=== PATIENT | male | born 1955 | race Caucasian/White ===

== ENCOUNTER 2017-10-15 17:52 | Emergency (ER) | payer OTHER, MEDICAID ==
[2017-10-15 18:14] VITALS: BP 119/71; PULSE 74; RESP 18; TEMP 98.1; O2SAT 95
[2017-10-15] MEDS ORDERED: CEPHALEXIN 500 MG CAP PO ONE (18:26)
--- NOTE | 2017-10-15 18:30 | EDPHY ---
H & P Time Seen by Provider: 10/15/17 18:06 HPI/ROS: CHIEF COMPLAINT: "I think I have an infection on my head" HISTORY OF PRESENT ILLNESS: 62-year-old immunocompetent male with up-to-date tetanus states that 12 days ago he was wearing a hat, impacted a metal edge sustained an abrasion. He has noticed progressive erythema and he started to notice drainage on the vertex of his head. Today is Monday. He was seen at [facility] on Monday for URI symptoms started on Bactrim. He notes that the drainage continues from his scalp. He denies: Headache, nausea, vomiting, fever, chills, visual disturbance, nuchal rigidity. PRIMARY CARE PROVIDER: REVIEW OF SYSTEMS: A ten point review of systems was performed and is negative with the exception of the items mentioned in the HPI PHYSICAL EXAM (Prior to examination, patient consented to physical exam, hands were washed and my usual and customary physical exam procedures followed) 1) GENERAL: Well-developed, well-nourished, alert and oriented. Appears to be in no acute distress. 2) HEAD: Normocephalic 3) HEENT: sclera anicteric 4) LUNGS: Breathing comfortably. 5) SKIN: On the vertex of the patient's scalp has an area of erythema which is currently draining. There are no new areas of fluctuance I can identify. No extension to the face. 6) NEURO: Awake, alert, and oriented to person, place and time. Answers questions appropriately. There were no obvious focal neurologic abnormalities. No cerebellar dysfunction. Normal steady gait. Upper and lower extremities bilaterally with strength 5 / 5, reflexes 2+. Smoking Status: Former smoker Constitutional: Initial Vital Signs Temperature (C) 36.7 C 10/15/17 18:12 Heart Rate 74 10/15/17 18:12 Respiratory Rate 18 10/15/17 18:12 Blood Pressure 119/71 10/15/17 18:12 O2 Sat (%) 95 10/15/17 18:12 O2 Delivery Mode Room Air Allergies/Adverse Reactions: No Known Allergies Allergy (Unverified 08/26/10 19:31) Home Medications: Medication Instructions Recorded AMBIEN 08/26/10 Vicodin ES 08/26/10 Cephalexin [Keflex] 500 mg PO TID 10 Days cap 10/15/17 MDM/Departure - [facility] ED Course/Re-evaluation: I do not think this patient is septic. Doubt intracranial pathology. I do not think that imaging studies are indicated at this time. I am adding Keflex was medication regimen. Recommend continued warm packs on the area. I do not identify new areas of fluctuance requiring incision drainage however patient has been informed that this may be indicated at a future time. Doubt necrotizing fasciitis. Recommended [facility]. Usual and customary discharge precautions instructions provided. He feels comfortable being discharged. Care of patient under supervision of secondary supervising physician Dr Baker . - Depart Disposition: Home, Routine, Self-Care Clinical Impression: Cellulitis of scalp Condition: Good Instructions: Cellulitis (ED) Additional Instructions: Return to the ER if you develop headaches, nausea, vomiting, problems walking, worsening symptoms or any other symptoms that concern you Prescriptions: Cephalexin [Keflex] 500 mg PO TID 10 Days cap Referrals: SHUN LOPEZ [Other] - 1 day without fail
== END 2017-10-15 18:55 | disposition home or self-care (01) ==
DX: L03.811 Cellulitis of head [any part, except face] (principal); Z87.891 Personal history of nicotine dependence